=== PATIENT | female | born 1945 | race Caucasian/White ===

== ENCOUNTER 2019-01-28 22:44 | Emergency (ER) | payer MEDICARE ==
[2019-01-28 22:50] VITALS: RESP 18
--- NOTE | 2019-01-28 23:44 | ED ---
Skin/Abscess/FB HPI - General Chief complaint: Skin/Abscess/Foreign Body Stated complaint: Reaction to medication Time Seen by Provider: 01/28/19 22:59 Source: patient, RN notes reviewed, old records reviewed Mode of arrival: ambulatory Limitations: no limitations - History of Present Illness Initial comments: Patient's a 74-year-old female reports she is concerned she is having a reaction to her medications. She's been on a steroid and Augmentin for 2 days for sinusitis. Patient reports after taking Augmentin this evening she started to have a flush and swelling in her face. She denies any difficulty breathing. Patient states that she was concerned and wanted to be advised if she needs take these medicines are could switch to something new. Patient states that she's had no other complaints at this time. Patient states that she's had steroids in the past and has had no issues. She's not been on Augmentin. Patient states that she has history of chronic sinus issues after sinus surgery. But she was concerned that this was purulent drainage and was concern for infection on specialist was started on his antibiotics from a urgent care. - Related Data Previous Rx's Medication Instructions Recorded Azithromycin [Zithromax] 250 mg PO DIRECTED #6 tab 01/28/19 diphenhydrAMINE [Benadryl] 25 mg PO HS PRN #30 capsule 01/28/19 Allergies Allergy/AdvReac Type Severity Reaction Status Date / Time Cholinesterase Allergy Anaphylaxis Verified 01/28/19 22:52 Inhibitor(Carbamate) Review of Systems ROS Statement: Those systems with pertinent positive or pertinent negative responses have been documented in the HPI. ROS Other: All systems not noted in ROS Statement are negative. Past Medical History Past Medical History: Atrial Fibrillation History of Any Multi-Drug Resistant Organisms: None Reported Past Surgical History: Orthopedic Surgery, Tonsillectomy Past Psychological History: No Psychological Hx Reported Smoking Status: Former smoker Past Alcohol Use History: None Reported Past Drug Use History: None Reported General Exam - General Exam Comments Initial Comments: Pleasant 34-year-old female. No distress. Limitations: no limitations General appearance: alert, in no apparent distress Head exam: Present: atraumatic, normocephalic, normal inspection, other (Flushed face, erythema over bilateral cheeks.) Eye exam: Present: normal appearance, PERRL, EOMI. Absent: scleral icterus, conjunctival injection, periorbital swelling ENT exam: Present: normal exam, mucous membranes moist Neck exam: Present: normal inspection. Absent: tenderness, meningismus, lymphadenopathy Respiratory exam: Present: normal lung sounds bilaterally. Absent: respiratory distress, wheezes, rales, rhonchi, stridor Cardiovascular Exam: Present: regular rate, normal rhythm, normal heart sounds. Absent: systolic murmur, diastolic murmur, rubs, gallop, clicks GI/Abdominal exam: Present: soft, normal bowel sounds. Absent: distended, tenderness, guarding, rebound, rigid Extremities exam: Present: normal inspection, full ROM, normal capillary refill. Absent: tenderness, pedal edema, joint swelling, calf tenderness Back exam: Present: normal inspection Neurological exam: Present: alert, oriented X3, CN II-XII intact Psychiatric exam: Present: normal affect, normal mood Course Vital Signs 01/28/19 01/29/19 22:45 00:06 Temperature 98.0 F 97.9 F Pulse Rate 67 59 L Respiratory 18 18 Rate Blood Pressure 139/71 122/65 O2 Sat by Pulse 99 97 Oximetry Medical Decision Making - Medical Decision Making 74-year-old female presents for concern for medication reaction. She has a flushed face after taking Augmentin this evening as well as steroids. She's had steroids in the past with no reactions. Discussed this more likely related to her antibiotic. Patient is given Benadryl Pepcid. She has no tongue swelling no difficulty breathing. I discussed the Patient follow-up with primary care doctor. All questions were answered return parameters were discussed. Discussed switching from Augmentin to azithromycin to cover for sinusitis. Disposition Clinical Impression: Medication reaction, Flushed complexion Disposition: HOME SELF-CARE Condition: Good Instructions (If sedation given, give patient instructions): General Allergic Reaction (ED) Additional Instructions: Patient advised to do as Benadryl every 4-6 hours as needed for reaction. Continue steroid. Switched to azithromycin antibiotic in the next days. Prescriptions: diphenhydrAMINE [Benadryl] 25 mg PO HS PRN #30 capsule PRN Reason: Itching Azithromycin [Zithromax] 250 mg PO DIRECTED #6 tab Is patient prescribed a controlled substance at d/c from ED?: No Referrals: None,Stated [Primary Care Provider] - 1-2 days Amairani Cuevas MD [STAFF PHYSICIAN] - 1-2 days Darwin Cazares MD [REFERRING] - 1-2 days Xochilt Muhammad DO [REFERRING] - 1-2 days Time of Disposition: 23:43
[2019-01-28] MEDS: FAMOTIDINE 20 MG TAB PO STA (23:57)
[2019-01-28] MEDS: diphenhydrAMINE 25 MG CAP PO STA (23:57)
[2019-01-29] MEDS: diphenhydrAMINE 25 MG CAP PO STA
[2019-01-29] MEDS: FAMOTIDINE 20 MG TAB PO STA (00:01)
[2019-01-29 00:07] VITALS: BP 122/65; PULSE 59; TEMP 97.9
== END 2019-01-29 00:06 | disposition home or self-care (01) ==
LOC: EC 22:44
DX: R23.2 Flushing (principal); T36.0X5A Adverse effect of penicillins, initial encounter; I48.91 Unspecified atrial fibrillation; Z88.8 Allergy status to other drugs, medicaments and biological substances; Z87.891 Personal history of nicotine dependence
CPT/HCPCS: 99283

== ENCOUNTER → 2021-01-02 | Outpatient (CLI) | payer MEDICARE ==
[2021-01-02 16:46] LABS: HCT 39.6 % (34.0-46.0); HGB 13.6 gm/dL (11.4-16.0); MCHC 34.4 g/dL (31.0-37.0); MCV 104.8 fL (80.0-100.0); Macrocytosis Slight; Mean Platelet Volume 6.9; Platelet Count 310 k/uL (150-450); RBC 3.78 m/uL (3.80-5.40); RDW 11.7 % (11.5-15.5); WBC 6.1 k/uL (3.8-10.6)
[2021-01-02 16:54] LABS: Appearance,Urine Clear (Clear); Bilirubin,Urine Negative (Negative); Blood,Urine Trace (Negative); Color,Urine Colorless; Glucose,Urine (UA) Negative (Negative); Ketones,Urine Negative (Negative); Leukocyte Esterase,Urine Negative (Negative); Nitrite,Urine Negative (Negative); PH, Urine 5.5 (5.0-8.0); Protein,Urine Negative (Negative); RBC,Urine 1 /hpf (0-5); Specific Gravity,Urine 1.007 (1.001-1.035); Urobilinogen,Urine <2.0 mg/dL (<2.0)
[2021-01-02 16:55] LABS: Albumin 4.4 g/dL (3.5-5.0); Potassium 4.6 mmol/L (3.5-5.1); Total Protein 7.2 g/dL (6.3-8.2)
[2021-01-02 16:56] LABS: Calcium 9.5 mg/dL (8.4-10.2); Total Bilirubin 0.8 mg/dL (0.2-1.3)
[2021-01-02 16:57] LABS: Partial Thromboplastin Time 25.4 sec (22.0-30.0); Prothrombin Time 10.5 sec (9.0-12.0)
== END | disposition home or self-care (01) ==
LOC: LABPAT 15:58
PROVIDERS: ATTEND Orthopaedic Surgery
DX: Z01.812 Encounter for preprocedural laboratory examination (principal); Z01.810 Encounter for preprocedural cardiovascular examination; M16.11 Unilateral primary osteoarthritis, right hip
CPT/HCPCS: 36415; 80053; 81001; 85027; 85610; 85730; 87070; 93005

== ENCOUNTER 2021-01-09 13:27 | Day surgery (SDC) | payer MEDICARE ==
[~2021-01-09 13:27] MED LIST: ACETAMINOPHEN TAB 500 MG TAB PO PRN; DEXAMETHASONE SOD PHOSPHATE 4 MG/ML 1 ML VIAL IV ONE; GABAPENTIN 300 MG CAP PO PRN; HYDROcodone/APAP 7.5-325MG 1 EACH TAB PO PRN; HYDROmorphone 0.2 MG/1 ML SYRINGE IVP PRN; HYDROmorphone 0.5 MG/0.5 ML SYRINGE IVP PRN; MELOXICAM 7.5 MG TAB PO PRN; MIDAZOLAM 2 MG/2 ML VIAL IV PRN; NALOXONE 0.4 MG/ML 1 ML VIAL IV PRN; ONDANSETRON 4 MG/2 ML VIAL IVP ONE; ONDANSETRON 4 MG/2 ML VIAL IVP PRN; ROPIVACAINE/EPI/CLONIDINE/KET 50 ML SYRINGE MISCELLANE PRN; TRANEXAMIC ACID 1,000 MG in SODIUM CHLORIDE 0.9% 100 ML IVPB PRN; VANCOMYCIN 750 MG in SODIUM CHLORIDE 0.9% 250 ML IVPB PRN
[2021-01-09] MEDS ORDERED: NEOSTIGMINE 1 MG/ML 10 ML VIAL ONE (14:04)
[2021-01-09] MEDS ORDERED: PROPOFOL 10 MG/ML 20 ML VIAL IV ONE (14:04)
[2021-01-09] MEDS ORDERED: ePHEDrine SULFATE/0.9% NACL/PF 50 MG/5 ML SYRINGE IV ONE (14:04)
[2021-01-09] MEDS ORDERED: MIDAZOLAM 2 MG/2 ML VIAL ONE (14:04)
[2021-01-09] MEDS ORDERED: fentaNYL (PF) 50 MCG/ML 2 ML AMP ONE (14:04)
[2021-01-09] MEDS ORDERED: SODIUM CHLORIDE 0.9% IRRIG 1,000 ML BTL IRRIGATION ONE (14:04)
[2021-01-09] MEDS ORDERED: GLYCOPYRROLATE 0.2 MG/ML 2 ML VIAL ONE (14:04)
[2021-01-09] MEDS ORDERED: TRANEXAMIC ACID 1,000 MG/10 ML VIAL ONE (14:04)
[2021-01-09] MEDS ORDERED: SODIUM CHLORIDE 0.9% 100 ML BAG ONE (14:04)
[2021-01-09] MEDS: LACTATED RINGERS 1,000 ML IV SCH (14:04)
[2021-01-09] MEDS ORDERED: ROCURONIUM 10 MG/ML (5 ML VIAL) IV ONE (14:04)
[2021-01-09] MEDS ORDERED: HEPARIN SODIUM,PORCINE 10,000 UNIT/ML 1 ML VIAL ONE (14:04)
[2021-01-09] MEDS ORDERED: LIDOCAINE 1% INJ 10MG/ML (20 ML MDV) ONE (14:04)
--- NOTE | 2021-01-09 15:16 | P.OP ---
Date of Procedure: 01/09/21 Preoperative Diagnosis: Severe osteoarthritis right hip Postoperative Diagnosis: Severe osteoarthritis right hip Procedure(s) Performed: Right total hip arthroplasty with a direct anterior approach Implants: [employer] Polarstem standard size 3 [employer] R3, 3 hole hemispherical acetabular shell, 52 mm [employer] Reflection 6.5 mm cancellus screw, 25 mm 2 [employer] R3, XLPE 20 acetabular liner [employer] Oxinium femoral head 36 m, +0 All components were press-fit. The articulation is Oxinium on polyethylene. Anesthesia: GETA Surgeon: Yong Lunsford Combination Presser #1: Riana De La Cruz Estimated Blood Loss (ml): 100 Pathology: other (Femoral head) Condition: stable Disposition: PACU Indications for Procedure: After failure of conservative treatment we discussed the surgical and nonsurgica l treatment options at length. Patient wishes to proceed with a total hip arthroplasty with a direct anterior approach. Complications specific to this procedure were discussed at length, including but not limited to infection, leg length discrepancy, dislocation, nerve injury, and fracture. Covid-19 was also discussed at length with the patient, and they are aware of the current policies and procedures. The patient was given the option of delaying surgery, but they elect to proceed knowing these risks. Patient is aware of all these complications and informed consent was obtained Operative Findings: The operative findings are consistent with severe osteoarthritis of the right hip Description of Procedure: Patient was seen and evaluated in the preoperative area and the consent was reviewed. The operative site was marked with a skin marker. The patient was then brought to the operating room and given preoperative antibiotics intravenously. 1 g of Tranexamic acid was also given intravenously. A general anesthetic was administered by the anesthesia department. The patient was then placed on the Marshall table with the bony prominences well-padded. The hip area was then prepped with a ChloraPrep solution and draped in the usual sterile fashion. A universal timeout was then performed, which confirmed the patient's name, surgical site, ALLERGIES, and procedure being performed on the consent. Next the incision site was located at 1 cm distal to the anterior superior iliac spine along the flexion crease of the hip. The skin and subcutaneous tissues were sharply incised. Incision was carefully dissected down to the fascia overlying the tensor fascia kingsley muscle. This fascia was then incised in line with the incision. Care was taken to stay laterally in order to avoid injuring the lateral femoral cutaneous nerve. Next, using blunt finger dissection, the tensor fascia kingsley muscle was dissected off its investing fascia. The muscle was then carefully retracted laterally with a cobra retractor over the lateral neck of the femur. Next, the circumflex vessels were identified and cauterized using the AquaMantis device. The anterior hip capsule was then exposed. The capsule was then opened and an inverted T fashion. Cobra retractors were then placed intracapsularly. The retractors were maintained intracapsular throughout the procedure. The proximal femur was then visualized. A small amount of traction was placed on the leg. The femoral neck was then osteotomized appropriate level above the lesser trochanter. A small wedge of bone was then removed from the remaining femoral head. Next, using a corkscrew the femoral head was removed from the acetabulum. On gross visual inspection, the femoral head had complete loss of articular cartilage and multiple periarticular osteophytes. The femoral head was then measured. Attention was then turned to the acetabulum. The acetabulum was exposed and any remaining labrum was excised. Sequential reaming of the acetabulum was performed using fluoroscopic guidance until there was a good bed of bleeding cancellus bone. When the appropriate size was reached, a trial was then placed. The position and fit of the trial was checked with fluoroscopy. The trial was then removed. Then, using fluoroscopic guidance, the final implant was impacted at 20 of anteversion and 40 of abduction, and fully seated in the acetabulum. 2 screws were then placed in the acetabulum. Again fluoroscopy was used to check position of the screws. Next, the liner was then impacted, with a 20 elevated liner located in the anterior superior quadrant. Component locking was confirmed. Attention was then directed to the femur. With the aid of the Marshall table, the femur was externally rotated to approximately 130, extended, and adducted under the opposite leg. A side hook was then placed under the proximal femur, and the side hook elevator was used to elevate the proximal femur while releasing the capsule. Retractors were then placed. A capsular release was performed, as well as a release of the conjoined tendon, which afforded excellent visualiz ation of the proximal femur. Next, a box osteotome was used to lateralize the proximal femur. A material handling warehouse supervisor was then used to locate the femoral canal. Sequential broaching was then performed with appropriate size which afforded excellent fixation in the proximal femur. A trial was then placed with appropriate head and neck, and the hip was gently reduced with the aid of the Marshall table. Fluoroscopy was then used to check position of the components, as well as to ensure equal leg lengths. The hip was then gently dislocated and the trials were then removed. Final implants were then impacted and the hip was again reduced. Final fluoroscopic x-rays confirmed that the components were in anatomic position, as well as equal leg lengths. The hip was also taken through range of motion, and found to be stable. The hip was then copiously irrigated with antibiotic solution with pulsatile lavage. The hip was then irrigated with Irrisept solution. The soft tissues were then injected with a ropivacaine solution, which consisted of 246.25 mg of ropivacaine, 0.5 mg of epinephrine, 30 mg of Toradol, 80 g of clonidine, and 48.45 mL of sterile water, for a total of 100 mL of fluid injected. A second dose of 1 g of Tranexamic acid was also given intravenously. Any blood collected by Cell Saver was then returned to the patient at this time. The fascia was then closed with 2-0 strata fix suture. The subcutaneous tissue was closed with 3-0 Vicryl. The subcuticular tissue was closed with 3-0 strata fix suture. The skin was then closed with Exofin skin glue. After the glue and dried, and Optifoam silver impregnated dressing was applied. The patient was then transferred to the recovery room in stable condition. The case management assistant SANDRO Mcmanus was required due to the complexity of surgery, and the need for skilled director medical surgical for positioning, draping, exposure, retraction, and closure of the wound.
[2021-01-09] MEDS: HYDROmorphone 0.5 MG/0.5 ML SYRINGE IVP PRN ×4 (15:44→16:20)
[2021-01-09] MEDS ORDERED: ONDANSETRON 4 MG/2 ML VIAL IVP ONE (15:45)
--- NOTE | 2021-01-09 16:17 | XR ---
Limited right hip HISTORY: Postop right hip prostate Single frontal view of the right hip Patient is status post right hip arthroplasty, there is anatomic alignment. Is present in the soft ti ssues consistent with subcutaneous emphysema and postop change. IMPRESSION: Orthopedic follow-up.
[2021-01-09] MEDS ORDERED: PROMETHAZINE INJ 25 MG/ML 1 ML VIAL IVPB ONE (17:35)
[2021-01-09] MEDS ORDERED: NALOXONE 0.4 MG/ML 1 ML VIAL IV PRN (19:44)
[2021-01-09] MEDS ORDERED: MAGNESIUM HYDROXIDE 2,400 MG/10 ML CUP PO PRN (19:44)
--- NOTE | 2021-01-09 20:37 | FL ---
Fluoroscopy HISTORY: Hip replacement 10 seconds fluoroscopy time supplied to the referring clinician. 3 intraoperative C-arm images docum ent the procedure. See dictated report from orthopedic surgery.
[2021-01-09] MEDS ORDERED: SENNOSIDES-DOCUSATE SODIUM 1 EACH TAB PO SCH (21:00)
[2021-01-09 21:11] VITALS: RESP 16
[2021-01-09] MEDS: SODIUM CHLORIDE 0.9% 1,000 ML IV SCH (21:28)
[2021-01-10] MEDS: HYDROcodone/APAP 7.5-325MG 1 EACH TAB PO PRN ×2 (03:55→10:31)
[2021-01-10] MEDS ORDERED: DRONEDARONE 400 MG TAB PO SCH (07:30)
[2021-01-10 07:40] VITALS: BP 95/50; PULSE 52; TEMP 97.9
[2021-01-10] MEDS: LACTATED RINGERS 1,000 ML IV SCH (08:31)
[2021-01-10] MEDS: SODIUM CHLORIDE 0.9% 1,000 ML IV SCH (08:31)
--- NOTE | 2021-01-10 08:56 | P.DS ---
Providers Date of admission: 01/09/21 15:36 Expected date of discharge: 01/10/21 Attending physician: Yong Lunsford Consults: 01/09/21 19:47 Consult Physician Routine Consulting Provider: Fadi Muhammad Consult Reason/Comments: medical management Do you want consulting provider notified?: Yes Primary care physician: Fadi Muhammad MD - Discharge Diagnosis(es) (1) Osteoarthritis of right hip Current Visit: Yes Status: Acute (2) Status post total hip replacement, right Current Visit: Yes Status: Acute Hospital Course: This is a 75-year-old female with known history of degenerative arthritis of the right hip. The patient presented for evaluation as an outpatient. After discussion and consideration patient elects to proceed with total hip arthroplasty. The patient is seen preoperatively by Dr. Lunsford and medically cleared for surgery by their primary care physician. Patient is admitted to [facility] on 01/09/2021 for total hip arthroplasty. The procedure is performed without complication or sequelae. The patient is doing well postoperatively. Labs and vital signs are stable on day of discharge. On day of discharge patient's hip incision is healing well. There is minimal erythema. There is no drainage noted at this time. There is minimal soft tissue swelling to the hip and thigh. Patient has full foot and ankle motion without difficulty or pain. Calf is soft and nontender to palpation. Neurovascular status to the right lower extremity is intact. Patient is discharged home in good condition. Opioid start talking form is reviewed and signed. Please see med rec for accurate list of home medications. Plan - Discharge Summary Discharge Rx Participant: Yes New Discharge Prescriptions: New HYDROcodone/APAP 7.5-325MG [Starr 7.5-325] 1 - 2 tab PO Q6H PRN #32 tab PRN Reason: Pain Ondansetron Odt [Zofran Odt] 1 tab PO Q8HR PRN #10 tab PRN Reason: Nausea Sennosides [Senokot] 2 tab PO DAILY PRN #60 tablet PRN Reason: Constipation No Action Dronedarone [Multaq] 400 mg PO AC-BID diphenhydrAMINE [Benadryl] 25 mg PO HS PRN PRN Reason: Insomnia Apixaban [Eliquis] 5 mg PO BID Acetaminophen/Diphenhydramine [Tylenol PM 500-25mg] 1 tab PO HS Discharge Medication List Acetaminophen/Diphenhydramine [Tylenol PM 500-25mg] 1 tab PO HS 01/04/21 [History] Apixaban [Eliquis] 5 mg PO BID 01/04/21 [History] Dronedarone [Multaq] 400 mg PO AC-BID 01/04/21 [History] diphenhydrAMINE [Benadryl] 25 mg PO HS PRN 01/04/21 [History] HYDROcodone/APAP 7.5-325MG [Starr 7.5-325] 1 - 2 tab PO Q6H PRN #32 tab 01/09/21 [Rx] Ondansetron Odt [Zofran Odt] 1 tab PO Q8HR PRN #10 tab 01/09/21 [Rx] Sennosides [Senokot] 2 tab PO DAILY PRN #60 tablet 01/09/21 [Rx] Follow up Appointment(s)/Referral(s): Fadi Muhammad MD [Primary Care Provider] - 1 Week Yong Lunsford DO [Doctor of Osteopathic Medicine] - 01/23/21 1:45 pm (Appointment with Riana De La Cruz) Patient Instructions/Handouts: *Surgery [facility] - Anesthesia Discharge Instructions, Anterior Hip Replacement (DC) Activity/Diet/Wound Care/Special Instructions: Weightbearing as tolerated with walker. Leave dressing intact. Dressing may be removed by home care nurse or by patient in 7 days. Then change dressing twice daily until follow up. May shower with initial dressing intact and after removal. If dressing become saturated, please remove. Please resume Eliquis postoperatively. Recommend use of compression stockings daily until follow up to help prevent swelling and blood clots. May remove at night before sleeping. Please follow[facility]up with [facility] 2 weeks and call with any questions or concerns, . Discharge Disposition: HOME WITH HOME HEALTH SERVICES
[2021-01-10] MEDS ORDERED: APIXABAN 5 MG TAB PO SCH (09:00)
[2021-01-10] MEDS ORDERED: PANTOPRAZOLE 40 MG/10 ML VIAL IVP SCH (09:15)
[2021-01-10 11:40] LABS: Basophils # (A) 0.02 X 10*3/uL (0.00-0.10); Basophils % (A) 0.2 %; Eosinophils # (A) 0 X 10*3/uL (0.04-0.35); Eosinophils % (A) 0 %; HCT 28.7 % (37.2-46.3); HGB 9.3 g/dL (12.0-15.0); Lymphocytes # (A) 0.79 X 10*3/uL (0.90-5.00); Lymphocytes % (A) 9.5 %; MCH 33.7 pg (27.0-32.0); MCHC 32.4 g/dL (32.0-37.0); Mean Platelet Volume 9.8 fL (9.5-12.2); Monocytes # (A) 0.76 X 10*3/uL (0.20-1.00); Monocytes % (A) 9.1 %; Neutrophils # (A) 6.74 X 10*3/uL (1.80-7.70); Neutrophils % (A) 80.7 %; Platelet Count 221 X 10*3/uL (140-440); RBC 2.76 X 10*6/uL (4.10-5.20); RDW 12.4 % (11.5-14.5); WBC 8.35 X 10*3/uL (4.50-10.00)
== END 2021-01-10 11:17 | disposition home health service (06) ==
LOC: OR 13:27 → UNDOADMOB 15:36 → 4SSUR 15:36 → UNDODISOB 01-10 11:17 → OR 01-10 11:17
PROVIDERS: ATTEND Orthopaedic Surgery
DX: M16.11 Unilateral primary osteoarthritis, right hip (principal); I10 Essential (primary) hypertension; E78.5 Hyperlipidemia, unspecified; I48.91 Unspecified atrial fibrillation; Z87.891 Personal history of nicotine dependence; Z88.0 Allergy status to penicillin; Z79.01 Long term (current) use of anticoagulants; Z79.899 Other long term (current) drug therapy
CPT/HCPCS: 94760; 97161; 97535; 97165; 86891; 86900; 86901; 85025; 86850; 88300; 73501; 27130; C1776; J2250; J3370; J1644; J1100; J2550; J2710; J0690; J2405; J2001; J3010; J2704; J1170